=== PATIENT | male | born 1990 | race Caucasian/White ===

== ENCOUNTER 2023-07-16 04:32 | Emergency (ER) | payer BC, SELFPAY ==
[2023-07-16 04:40] VITALS: BP 136/89; PULSE 71; RESP 16; TEMP 37.8; O2SAT 9
--- NOTE | 2023-07-16 06:19 | XRR_ITS ---
PROCEDURE INFORMATION: Exam: XR Chest Exam date and time: 07/16/2023 7:15 AM Age: 32 years old Clinical indication: Cough TECHNIQUE: Imaging protocol: Radiologic exam of the chest. Views: 2 views. COMPARISON: No relevant prior studies available. FINDINGS: Lungs: No focal infiltrate identified. Suboptimal inspiratory effort on the PA view. Pleural spaces: No significant pleural fluid. No pneumothorax detected. Heart/Mediastinum: Mild cardiomegaly without pulmonary vascular congestion. Bones/joints: No obvious acute abnormality. XR/XR chest 2V* [id number] IMPRESSION: No active chest disease identified. Cough
[2023-07-16 07:25] VITALS: BP 133/86; PULSE 79; RESP 17; O2SAT 93
[2023-07-16 07:40] LABS: Rapid Strep A Test Negative (Negative)
--- NOTE | 2023-07-16 07:51 | ED_ITS ---
HPI - General Adult General: Chief complaint: General Medical Stated complaint: throat pain,SOB Time Seen by Provider: 07/16/23 06:19 History of Present Illness: 32-year-old male presents to the emergen cy department with complaints of feeling like his throat is been swollen and tonsil pain for the previous 3 days. He states his left side is significantly swollen and touching his uvula. He states he can still swallow but is very painful. He states he has not eaten in the last 24 hours due to this pain. Review of Systems General: Reports: 10 or more systems reviewed and unremarkable except in HPI and below ENMT: Reports: throat pain, uvular edema, enlarged tonsils and odynophagia [facility] [place] ED PFSH: Medical History (Updated 07/16/23 @ 07:54 by Soto Vee MD) Psychiatric care Physical Exam Narrative: EXAM NARRATIVE: Constitutional: the patient appears well nourished and of normal development. Vital signs as documented. No acute distress at present. Alert and oriented-to person, place, time and situation. Head, eyes, ears, nose, mouth, throat: Normocephalic, atraumatic. Pupils-equal, round, reactive to light. No scleral icterus. Normal-appearing external ears. Normal appearing nasal turbinates, no drainage. No obvious oral lesions, posterior oropharynx with significant erythema and bilateral tonsillar swelling Neck: Supple, trachea is midline, anterior cervical chain lymphadenopathy, no jugular venous distension, thyromegaly, or carotid bruits. Carotid upstrokes are brisk bilaterally. Lungs: clear to auscultation to all lung martinez. Symmetrical rise and fall of chest, no obvious signs of increased work of breathing at present. Cardiac: Regular rate and rhythm, positive S1, S2. No murmurs, rubs or gallops that I can appreciate Abdomen: Soft, non-tender to palpation, normal active bowel sounds to all quadrants. No palpable masses, no organomegaly and abdominal bruits. Extremities: 2+ pulses in the upper extremities that are equal bilaterally, 2+ pulses in the lower extremities that are equal bilaterally. Non-edematous. Moves all extremities well, sensation to all extremities are noted. Skin: Warm, dry, intact. HENMT: THROAT: uvular edema Course Vital Signs: Vital signs: Vital Signs Temperature 100.0 F H 07/16/23 04:40 Pulse Rate 79 07/16/23 07:25 Respiratory Rate 17 07/16/23 07:25 Blood Pressure 133/86 07/16/23 07:25 Pulse Oximetry 93 07/16/23 07:25 MDM - General Adult Medical Decision Making Physical exam completed and documented I will obtain a strep screen as well as a chest x-ray. I will provide the patient Solu-Medrol corticosteroids at discharge as well as albuterol inhaler for his bronchitis Differential Diagnosis Upper respiratory viral illness, strep pharyngitis, Medical Records I reviewed the patient's medical records. Lab Data I reviewed the patient's lab results. Radiology Impressions Chest X-Ray 07/16/23 06:19 IMPRESSION: No active chest disease identified. Cough Laboratory Results Group A Strep Rapid Negative (Negative) 07/16/23 07:05 All radiology interpretation(s) finalized by discharge Discharge Plan Discharge Patient Disposition: Home Clinical Impression: Acute viral tonsillitis, Bronchitis Condition: Stable Prescriptions: New prednisone 20 mg tablet 40 mg PO DAILY 5 Days Qty: 10 0RF albuterol sulfate 90 mcg/actuation HFA aerosol inhaler 2 inh inhalation Q6H PRN (Reason: shortness of breath or wheezing) Qty: 8.5 0RF phenol 1.4 % aerosol,spray 4 spray mucous membrane Q3H PRN (Reason: sore throat) Qty: 177 0RF Discharge Orders: Discharge ED (Routine); Ordered 07/16/23 Ordered By: Soto Vee Discharge Diet: Advance as tolerated Discharge Activity: Resume usual activity Patient Instructions: Opioid Safety, Pain Management Activity Restrictions/Additional Instructions: Activity Restrictions/Additional Instructions: Thank you for choosing [facility] for your healthcare needs today. Please realize that you were seen in the Emergency Department and that we are providing you with an emergency medical screening exam and this may not be a complete and all inclusive of all the testing and or medical work-up that you may need to determine your ailment or severity of your illness. It is very important that you follow-up as instructed with your Primary care provider or Specialist for additional evaluation and to discuss your medical treatment plan. You may return to the Emergency Department should you have concerns or if your condition changes or worsens in any way. Coding Level of Care Code ED Senior Network [employer] for [employer]
[2023-07-16] MEDS: methylPREDNISolone sod succ 125 mg/2 mL INJ 60 MG IM (08:17)
== END 2023-07-16 08:18 | disposition home or self-care (01) ==
PROVIDERS: Emergency Provider Internal Medicine
DX: J03.80 Acute tonsillitis due to other specified organisms (principal); B97.89 Other viral agents as the cause of diseases classified elsewhere; J40 Bronchitis, not specified as acute or chronic
CPT/HCPCS: 71046; 87081; 87880; 96372; 99284; J2930

== ENCOUNTER 2023-08-21 15:47 | Outpatient (CLI) | payer OTHER, SELFPAY ==
--- NOTE | 2023-08-21 15:56 | MR_ITS ---
WS: [id number] MRI BRAIN WITH AND WITHOUT CONTRAST HISTORY: Traumatic brain injury memory loss COMPARISON: None available. TECHNIQUE: Multiplanar imaging performed through the brain with MultiHance 20 ml's IV. No acute infarcts are seen. Segal-white matter differentiation is well preserved. No susceptibility artifacts or prior lacunar infarcts. Ventricles and extra-axial spaces are normal. Clivus and pituitary gland are normal. Visualized posterior fossa and brainstem are also normal. Postcontrast images are negative for masses or vascular malformations. Dural venous sinuses are normal. Paranasal sinuses: Well aerated with no significant disease. Mastoid air cells: Normal. Calvarium and scalp: Normal. IMPRESSION: 1. Normal MRI brain with contrast. 2. No prior infarcts and no hemosiderin.
[2023-08-21] MEDS: gadobenate dimeglumine 20 mL vial IV (16:06)
== END 2023-08-21 15:48 | disposition home or self-care (01) ==
PROVIDERS: Visit Provider Family Medicine
DX: R41.3 Other amnesia (principal); Z87.820 Personal history of traumatic brain injury
CPT/HCPCS: 70553; A9577

== ENCOUNTER 2024-08-02 09:48 | Outpatient (CLI) | payer OTHER, SELFPAY ==
--- NOTE | 2024-08-02 09:52 | US_ITS ---
WS: [id number] Complete ABDOMINAL ULTRASOUND HISTORY: PAIN COMPARISON: None available. Liver: 15.7 cm in length. Normal size liver and echogenicity. No bile duct dilatation or mass. Portal Vein: Normal hepatopetal flow with monophasic waveform. Gallbladder: Normally distended gallbladder with no stones or wall thickening. CBD: not definitely visualized. Pancreas: Not seen. Right kidney: 10.1 cm x 5.6 x 5.3 cm. Cortex:1.2 cm. Normal size and echogenicity. No hydronephrosis or mass. Left kidney: 11.0 cm x 5.1 cm x 5.9 cm. Cortex: 1.8 cm. Normal size and echogenicity. No hydronephrosis or mass. Spleen: 11.4 cm. Normal size and echogenicity. Aorta and IVC: Unremarkable abdominal aorta and IVC. US/US abdomen complete* [id number] Impression: 1. Normal gallbladder. 2. Normal liver. 3. Common bile duct is not identified. 4. No renal obstruction.
== END 2024-08-02 09:49 | disposition home or self-care (01) ==
PROVIDERS: PCP Family Medicine; Visit Provider Family Medicine
DX: Z01.89 Encounter for other specified special examinations (principal)
CPT/HCPCS: 76700